=== PATIENT | male | born 1975 | race American Indian/Alaskan Native ===

== ENCOUNTER 2021-06-07 06:26 | Emergency (ER) | payer SELFPAY ==
--- NOTE | 2021-06-07 12:11 | Emergency Department Report ---
ED General Adult HPI - General Chief complaint: Extremity Injury, Lower Stated complaint: BLISTERS AN BRUISING OF THE FEET Time Seen by Provider: 06/07/21 11:48 Source: patient, EMS Mode of arrival: Stretcher Limitations: No Limitations - History of Present Illness Initial comments: Patient is 45 years old male with no significant past medical history except for bipolar disorder. Patient presented to the ER complaining of bilateral swelling and blister into his feet. Patient stated that he was walking a lot yesterday without socks. Patient denies any fever or chills. He also denied any chest pain, shortness of breath. Severity scale (0 -10): 6 ED Review of Systems ROS: Stated complaint: BLISTERS AN BRUISING OF THE FEET Other details as noted in HPI Comment: All other systems reviewed and negative Constitutional: denies: chills, fever Respiratory: denies: cough, shortness of breath, SOB with exertion Cardiovascular: denies: chest pain, palpitations Gastrointestinal: denies: abdominal pain, nausea, vomiting Musculoskeletal: denies: back pain Neurological: denies: headache Psychiatric: denies: depression, auditory hallucinations, visual hallucinations, homicidal thoughts, suicidal thoughts ED Physical Exam - General Limitations: No Limitations General appearance: alert, in no apparent distress - Head Head exam: Present: atraumatic, normocephalic, normal inspection - Eye Eye exam: Present: normal appearance, PERRL - ENT ENT exam: Present: normal exam, normal orophraynx, mucous membranes moist - Neck Neck exam: Present: normal inspection, full ROM. Absent: tenderness, meningismus - Respiratory Respiratory exam: Present: normal lung sounds bilaterally - Cardiovascular Cardiovascular Exam: Present: regular rate, normal rhythm, normal heart sounds - GI/Abdominal GI/Abdominal exam: Present: soft, normal bowel sounds. Absent: distended, tenderness, guarding, rebound, rigid - Extremities Exam Extremities exam: Present: normal inspection, full ROM, normal capillary refill. Absent: tenderness, pedal edema, joint swelling - Back Exam Back exam: Present: normal inspection, full ROM. Absent: CVA tenderness (R), CVA tenderness (L) - Neurological Exam Neurological exam: Present: alert, oriented X3, CN II-XII intact, normal gait, reflexes normal. Absent: motor sensory deficit - Psychiatric Psychiatric exam: Present: normal mood - Skin Skin exam: Present: other (Blisters in both feet. No evidence of cellulitis. Or abscess.) ED Course Vital Signs 06/07/21 06/07/21 06:41 13:50 Temperature 97.8 F 98.0 F Pulse Rate 87 96 H Respiratory 16 14 Rate Blood Pressure 138/84 141/87 [Left] O2 Sat by Pulse 97 96 Oximetry ED Medical Decision Making - Lab Data Result diagrams: 06/07/21 12:29 06/07/21 12:29 - Medical Decision Making Patient is 45 years old male with no significant past medical history except for bipolar disorder. Patient presented to the ER complaining of bilateral swelling and blister into his feet. Patient stated that he was walking a lot yesterday without socks. Patient denies any fever or chills. He also denied any chest pain, shortness of breath. Labs reviewed and showed mild leukocytosis. No clinical evidence of gangrene. Patient has 2+ dorsalis pedis bilaterally and tibialis posterior also. Patient given Keflex and advised to follow-up with his primary doctor in the next 2 to 3 days and to return to the ER if he develop any new symptoms. Critical care attestation.: If time is entered above; I have spent that time in minutes in the direct care of this critically ill patient, excluding procedure time. ED Disposition Clinical Impression: Blisters of multiple sites Disposition: 01 HOME / SELF CARE / HOMELESS Is pt being admited?: No Condition: Stable Instructions: Blisters, Adult Referrals: PRIMARY CARE, [Primary Care Provider] - 3-5 Days
[2021-06-07 13:29] LABS: Basophils % (Auto) 0.4 % (0.0-1.8); Eosinophils % (Auto) 0.1 % (0.0-4.3); Hematocrit 43.3 % (35.5-45.6); Hemoglobin 14.1 gm/dl (11.8-15.2); Lymphocytes # (Auto) 1.9 K/mm3 (1.2-5.4); Mean Corpuscular HGB Conc 33 % (32-34); Mean Corpuscular Volume 85 fl (84-94); Monocytes # (Auto) 0.8 K/mm3 (0.0-0.8); Monocytes % (Auto) 6.5 % (0.0-7.3); Platelet Count 310 K/mm3 (140-440); Red Cell Distribution Width 13.5 % (13.2-15.2)
[2021-06-07 13:30] LABS: BUN/Creatinine Ratio 26; Blood Urea Nitrogen 23 mg/dL (9-20); Calcium 9.8 mg/dL (8.4-10.2); Hemolysis Index 7
[2021-06-07 17:41] VITALS: BP 126/79
== END 2021-06-07 16:00 | disposition home or self-care (01) ==
LOC: ED 06:26
DX: S90.822A Blister (nonthermal), left foot, initial encounter (principal); S90.821A Blister (nonthermal), right foot, initial encounter; X58.XXXA Exposure to other specified factors, initial encounter; Y93.89 Activity, other specified; Y92.89 Other specified places as the place of occurrence of the external cause; Y99.8 Other external cause status
CPT/HCPCS: 36415; 80048; 85025; 99283

== ENCOUNTER 2021-06-08 04:33 | Emergency (ER) | payer SELFPAY ==
[2021-06-08 04:41] VITALS: BP 134/89
--- NOTE | 2021-06-08 06:57 | Emergency Department Report ---
ED Extremity Problem HPI - General Chief complaint: Extremity Injury, Lower Stated complaint: BILATERAL FOOT PAIN RECURRENT Time Seen by Provider: 06/08/21 06:40 Source: patient Mode of arrival: Ambulatory Limitations: No Limitations - History of Present Illness Initial comments: 45-year-old male who is currently homeless, and past history of bipolar disorder presents to the ER today with complaints of pain to his toes and feet. He states that for the past 24 hours he has been having pain and he has noticed swelling to his toes. He denies any particular injury but he does admit that he walks "a lot". He reports pain with weightbearing, and movement of his toes. He reports no apparent erythema, bruising, weakness, tingling or any additional complaints at this time. Patient was seen here yesterday for similar symptoms. He had labs done which were unremarkable. He was prescribed Keflex for multiple blisters to his feet. Patient still has the prescription that was given to him yesterday. He states that he does not have the money nor does he have insurance to get the prescription filled. MD Complaint: joint swelling, joint paint -: week(s) - Related Data Previous Rx's Medication Instructions Recorded Last Taken Type cephALEXin [Keflex] 500 mg PO Q8HR #28 cap 06/07/21 Unknown Rx ED Review of Systems ROS: Stated complaint: BILATERAL FOOT PAIN RECURRENT Other details as noted in HPI Comment: All other systems reviewed and negative Constitutional: denies: chills, fever Eyes: denies: eye pain, eye discharge, vision change ENT: denies: ear pain, throat pain Respiratory: denies: cough, shortness of breath, SOB with exertion, SOB at rest, wheezing Cardiovascular: denies: chest pain, palpitations Gastrointestinal: denies: abdominal pain, nausea, diarrhea, constipation, hematemesis, hematochezia Genitourinary: denies: urgency, dysuria Musculoskeletal: joint swelling, arthralgia, myalgia Skin: denies: rash, lesions, change in color, change in hair/nails, pruritus Neurological: denies: headache, weakness, numbness, paresthesias, confusion, abnormal gait, vertigo Psychiatric: denies: anxiety, depression, auditory hallucinations, visual hallucinations, homicidal thoughts, suicidal thoughts Hematological/Lymphatic: denies: easy bleeding, easy bruising, swollen glands ED Past Medical Hx - Past Medical History Previous Medical History?: Yes - Surgical History Past Surgical History?: Yes - Medications Home Medications: Home Medications Medication Instructions Recorded Confirmed Last Taken Type cephALEXin [Keflex] 500 mg PO Q8HR #28 cap 06/07/21 Unknown Rx ED Physical Exam - General Limitations: No Limitations General appearance: alert, in no apparent distress - Head Head exam: Present: atraumatic, normocephalic, normal inspection - Eye Eye exam: Present: normal appearance, PERRL, EOMI Pupils: Present: normal accommodation - ENT ENT exam: Present: normal exam - Neck Neck exam: Present: normal inspection, full ROM. Absent: meningismus - Respiratory Respiratory exam: Present: normal lung sounds bilaterally. Absent: respiratory distress, wheezes, rales, rhonchi - Cardiovascular Cardiovascular Exam: Present: regular rate, normal rhythm, normal heart sounds - GI/Abdominal GI/Abdominal exam: Present: soft. Absent: distended, tenderness, guarding, rebound, rigid - Extremities Exam Extremities exam: Present: full ROM, normal capillary refill (Dorsalis pedis pulse and cap refill is normal bilaterally to both feet.), other (Mild tenderness to the dorsal foot and diffusely to the toes bilaterally. He does have thickened hyperpigmented nails bilaterally. There is a small excoriated/raised area in between the left second and third toe. No necrosis or signs of erythema or secondary infection noted.). Absent: pedal edema, joint swelling, calf tenderness - Neurological Exam Neurological exam: Present: alert, oriented X3, CN II-XII intact, normal gait. Absent: motor sensory deficit - Skin Skin exam: Present: intact ED Course Vital Signs 06/08/21 04:39 Temperature 97.9 F Pulse Rate 101 H Respiratory 16 Rate Blood Pressure 134/89 [Right] O2 Sat by Pulse 97 Oximetry ED Medical Decision Making - Medical Decision Making 45-year-old male who is currently homeless, and past history of bipolar disorder presents to the ER today with complaints of pain to his toes and feet. He states that for the past 24 hours he has been having pain and he has noticed swelling to his toes. He denies any particular injury but he does admit that he walks "a lot". He reports pain with weightbearing, and movement of his toes. He reports no apparent erythema, bruising, weakness, tingling or any additional complaints at this time. Patient was seen here yesterday for similar symptoms. He had labs done which were unremarkable. He was prescribed Keflex for multiple blisters to his feet. Patient still has the prescription that was given to him yesterday. He states that he does not have the money nor does he have insurance to get the prescription filled. 0710: Examination of patient's feet does not suggest significant wound infection, cellulitis, gangrene, septic joint, acute arterial occlusion or any other emergent conditions warranting testing at this time. He does have what appears to be a small abrasion between the second and third toe of the left foot but does not appear to be infected. At this time will be given a few packs of Neosporin to apply to the area after cleaning. Most importantly recommend that he stays off his feet and elevate his feet as often as possible and to take Tylenol or ibuprofen for any pain. He will be given referral to local PCP for continued follow-up and proper foot care. Patient was stable at time of discharge. Critical care attestation.: If time is entered above; I have spent that time in minutes in the direct care of this critically ill patient, excluding procedure time. ED Disposition Clinical Impression: Bilateral foot pain, Onychomycosis, Abrasion of toe Disposition: 01 HOME / SELF CARE / HOMELESS Is pt being admited?: No Does the pt Need Aspirin: No Condition: Stable Instructions: Abrasion, Fungal Nail Infection, Foot Pain Additional Instructions: You take Tylenol and ibuprofen from [id number] to help with your pain.. Most importantly you need to keep your feet clean and dry daily. Wash well with soap and water, dry well, and apply the antibiotic packs given to you here in the ER over the abrasion as discussed. 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 Recommend try to stay off your feet as often as possible elevate your feet. Return to the ER if anything worsens. Referrals: JUAN CARLOS ANDRES MD [Staff Physician] - 3-5 Days [facility] [Provider Group] - 3-5 Days Time of Disposition: 07:05
[2021-06-08] MEDS ORDERED: NEOMY 3.5 MG/BACIT 400 UNITS/POLY B 5000 UNITS/GM OINT PACKET TP SCH (08:00)
[2021-06-08] MEDS ORDERED: ACETAMINOPHEN 325 MG TAB PO SCH (08:00)
== END 2021-06-08 09:03 | disposition home or self-care (01) ==
LOC: ED 04:33
DX: S90.415A Abrasion, left lesser toe(s), initial encounter (principal); B35.1 Tinea unguium; X58.XXXA Exposure to other specified factors, initial encounter; Y93.89 Activity, other specified; Y92.89 Other specified places as the place of occurrence of the external cause; Y99.8 Other external cause status
CPT/HCPCS: 99281